=== PATIENT | male | born 1980 | race Caucasian/White ===

== ENCOUNTER 2019-03-20 02:52 | Outpatient (CLI) | payer OTHER, SELFPAY ==
[2019-03-23 13:48] LABS: Chlamydia Result Negative; GC Result Negative; Specimen Description URINE
== END 2019-03-20 03:12 ==
PROVIDERS: PCP Family Medicine; Visit Provider Family Medicine
DX: Z11.3 Encounter for screening for infections with a predominantly sexual mode of transmission; R30.0 Dysuria
CPT/HCPCS: 87491; 87591

== ENCOUNTER 2019-09-20 22:50 | Emergency (ER) | payer OTHER, SELFPAY ==
[2019-09-20 22:56] VITALS: BP 119/69; PULSE 85; RESP 16; TEMP 36.4; O2SAT 97
--- NOTE | 2019-09-20 23:10 | ED.GENADUL_ITS ---
Discharge Plan Disposition Patient Disposition: HOME Condition: Stable Discharge Details Chief Complaint: EarProblem Clinical Impression: Acute foreign body of right ear Primary Care Provider: Ashlye Colvin ED Provider: Prashant Shelton Home Meds and New Rx's Prescriptions: New Ciprodex 0.3-0.1 % drops,suspension 4 drp OT BID 7 Days Qty: 1 RF: 0 Continued methylphenidate HCl 10 mg tablet 10 mg PO QPM MDD 10 PRN (Reason: adhd) Qty: 15 RF: 0 ascorbic acid (vitamin C) 500 mg capsule PO RF: 0 methylphenidate HCl 27 mg tablet extended release 24hr 27 mg PO DAILY MDD 1 tab Qty: 30 RF: 0 Fish Oil 500 MG capsule,delayed release(DR/EC) 500 mg PO DAILY RF: 0 Discharge Instructions Additional Instructions: if you have increasing ear pain and drainge start the antibiotic drops and if it continues to worsen despite this return to the emergency department Medical Decision Making patient was using a q tip tonight and end broke off in his right ear, no d rainage or other symptoms. I removed cotton end of a q tip from the right ear and has no drainage redness and normal tm. Will d/c and given prescription for abx drops if pain or drainage develops Differential Diagnosis Differential Diagnosis: foreign body, otitis externa HPI General Mode of arrival: ambulatory . Date/Time Provider Initiated Documentation: 09/20/19 22:51 . Limitations to Documentation: no limitations . Information obtained by: patient . History of Present Illness 39 year old M presents to the emergency department with the chief complaint of right ear foreign body, described as moderate, Quality is described as aching, Patient started experiencing this hour(s) and it has been constant. No relieving factors improve symptom(s), No exacerbating factors reported . Related Data Home Medications Medication Instructions Recorded Confirmed Fish Oil 500 mg PO DAILY 12/16/13 03/18/19 methylphenidate HCl 10 mg tablet 10 mg PO QPM PRN #15 tab-cap MDD 10 02/25/19 09/20/19 ascorbic acid (vitamin C) 500 mg mg PO cap 03/18/19 03/18/19 capsule methylphenidate HCl 27 mg 27 mg PO DAILY #30 tab MDD 1 tab 08/21/19 09/20/19 tablet,extended release 24 hr ciprofloxacin-dexamethasone 4 drp OT BID 7 Days #1 packet 09/20/19 [Ciprodex] Previous Rx's Medication Instructions Recorded methylphenidate HCl 10 mg tablet 10 mg PO QPM PRN #15 tab-cap MDD 10 02/25/19 methylphenidate HCl 27 mg 27 mg PO DAILY #30 tab MDD 1 tab 08/21/19 tablet,extended release 24 hr ciprofloxacin-dexamethasone 4 drp OT BID 7 Days #1 packet 09/20/19 [Ciprodex] Allergies Allergy/AdvReac Type Severity Reaction Status Date / Time Penicillins Allergy Intermediate Skin Rash Unverified 03/18/19 15:02 General Stated Complaint: EarProblem FRANNIE: 4 Review of Systems All systems reviewed & are unremarkable except as noted in HPI and below Constitutional Constitutional: Denies chills, Denies fever(s) and Denies weakness Cardiovascular Cardiovascular: Denies chest pain and Denies dyspnea Respiratory Respiratory: Denies cough and Denies dyspnea Gastrointestinal Gastrointestinal: Denies abdominal pain, Denies nausea and Denies vomiting Musculoskeletal Musculoskeletal: Denies joint swelling Neurologic Neurologic: Denies weakness Psychiatric Psychiatric: Denies depression [facility] Medical History (Updated 08/19/18 @ 10:11 by Vicky Granda RN) ADHD (attention deficit hyperactivity disorder) Surgical History (Updated 02/20/19 @ 09:12 by Surya Luna) PROCEDURES R) metatarsal fx S/P ORIF Family History Mother Essential hypertension Father , IMMUNE PROBLEMS at age 34. HIV disease Brother No problems noted. Grandfather Diabetes Dyslexia Heart disease CABG Myocardial infarction Stroke Grandfather No problems noted. Grandmother Mental disorder BPAD Grandmother No problems noted. MATERNAL AUNTS AND UNCLES Dyslexia MATERNAL UNCLE X 1 Mental disorder DEPRESSION Son Asthma Son No problems noted. Other Depression Social History Smoking/Tobacco Use Status: Never Alcohol Intake: never Drug use: Never Do you feel safe at home: Yes Do you feel safe in your relationship?: Yes Exam Const General: no acute distress Orientation: alert HENMT Head: normal to inspection Ears: external ears normal General nose exam: external nose normal Mouth: moist mucous membranes Eyes General: appearance normal, both eyes and all related structures Neck Neck: normal visual inspection Resp Effort & Inspection: normal respiratory effort and able to speak in complete sentences Cardio Rate: regular rate Skin General skin exam: no rashes or lesions noted Neuro General: alert and oriented x3 Extrem General: normal to inspection Psych Mental Status: mental status grossly normal Course Vital Signs Vital signs: Vital Signs Temperature 36.4 C L 09/20/19 22:56 Pulse 85 09/20/19 22:56 Respiratory Rate 16 09/20/19 22:56 Blood Pressure 119/69 09/20/19 22:56 Pulse Oximetry 97 09/20/19 22:56 Temperature 36.4 C L 09/20/19 22:56 Temperature Source Skin 09/20/19 22:56 Pulse 85 09/20/19 22:56 Respiratory Rate 16 09/20/19 22:56 Respiratory Effort 09/20/19 22:57 Blood Pressure 119/69 09/20/19 22:56 Blood Pressure Position Sitting 09/20/19 22:56 Pulse Oximetry 97 09/20/19 22:56 Oxygen Delivery Method Room Air 09/20/19 22:56 Oxygen Flow Rate 0 09/20/19 22:56 Procedures FB Removal Ear Location: ear canal (R) Foreign Body Suspected: other (q tip end) TM intact pre-procedure: yes Foreign Body Removed: yes Foreign Body Removal Technique: instrumentation Tympanic Membrane Intact: Yes Patient Tolerated Procedure: well Complications: none
== END 2019-09-20 23:15 | disposition home or self-care (01) ==
PROVIDERS: Emergency Provider Emergency Medicine; PCP Family Medicine
DX: T16.1XXA Foreign body in right ear, initial encounter (principal)
CPT/HCPCS: 69200

== ENCOUNTER 2020-02-18 08:22 | Emergency (ER) | payer OTHER, SELFPAY ==
[2020-02-18 08:26] VITALS: BP 126/76; PULSE 78; RESP 15; TEMP 36.7; O2SAT 99
--- NOTE | 2020-02-18 08:36 | ED.GENADUL_ITS ---
Discharge Plan Disposition Patient Disposition: HOME Condition: Improving Discharge Details Chief Complaint: EarProblem Clinical Impression: Foreign body in left ear, initial encounter Primary Care Provider: Ashley Colvin ED Provider: Diana Rick Home Meds and New Rx's Prescriptions: Continued ascorbic acid (vitamin C) 500 mg capsule PO RF: 0 methylphenidate HCl 10 mg tablet 10 mg PO QPM MDD 10 PRN (Reason: adhd) Qty: 15 RF: 0 methylphenidate HCl 27 mg tablet extended release 24hr 27 mg PO DAILY MDD 1 tab Qty: 30 RF: 0 Fish Oil 500 MG capsule,delayed release(DR/EC) 500 mg PO DAILY RF: 0 Discharge Instructions Instructions: Ear Foreign Body (ED) Additional Instructions: Follow up with primary care provider in 3-5 days. Return to ED sooner if any worsening or concerns. Increase oral fluids. Please take Tylenol or Ibuprofen with food every 4-6 hours as needed for pain and swelling. Generally, do not stick anything into your ear smaller than the pinky finger. If you do need to clean out your ears use high-quality Q-tips. Please follow-up with your PCP for any ringing in your ears, increased pain, or drainage. Or you may return to the ED at any time as always thank you for allowing us to be part of your care today. Referrals: Ashley Colvin MD [Primary Care Provider] - Discharge Data Discharge Date/Time-TO BE ENTERED AT DEPARTURE: 02/18/20 08:38 Medical Decision Making 39-year-old male presents with foreign body to left ear. Severity is rated as mild. patient states approximately 1 hour ago he was cleaning his ear with a Q- tip and the cotton tip got stuck in his left ear canal. He denies any fever, chills no pain. He does have a history of ADHD, dyslexia. Patient presented with left ear canal foreign body which was removed without difficulty. Patient discharged to PCP. This text was generated using [employer] system, please disregard any oddities of phrase or misspellings.. HPI General Mode of arrival: ambulatory . Date/Time Provider Initiated Documentation: 02/18/20 08:25 . Limitations to Documentation: no limitations . Information obtained by: patient . HPI Narrative: 39-year-old male presents with foreign body to left ear. Severity is rated as mild. patient states approximately 1 hour ago he was cleaning his ear with a Q-tip and the cotton tip got stuck in his left ear canal. He denies any fever, chills no pain. He does have a history of ADHD, dyslexia. Related Data Home Medications Medication Instructions Recorded Confirmed Fish Oil 500 mg PO DAILY 12/16/13 02/18/20 ascorbic acid (vitamin C) 500 mg mg PO cap 03/18/19 03/18/19 capsule methylphenidate HCl 10 mg tablet 10 mg PO QPM PRN #15 tab-cap MDD 10 01/18/20 02/18/20 methylphenidate HCl 27 mg 27 mg PO DAILY #30 tab MDD 1 tab 01/18/20 02/18/20 tablet,extended release 24 hr Previous Rx's Medication Instructions Recorded methylphenidate HCl 10 mg tablet 10 mg PO QPM PRN #15 tab-cap MDD 10 01/18/20 methylphenidate HCl 27 mg 27 mg PO DAILY #30 tab MDD 1 tab 01/18/20 tablet,extended release 24 hr Allergies Allergy/AdvReac Type Severity Reaction Status Date / Time Penicillins Allergy Intermediate Skin Rash Unverified 02/18/20 08:28 General Stated Complaint: EarProblem FRANNIE: 5 Review of Systems Narrative: Constitutional: Negative for weight loss, alert and oriented, well groomed, normal body habitus, appears comfortable. HEENT: Denies trauma, headaches, blurry vision, nasal discharge, sore throat, t rouble swallowing. Reports left ear foreign body sensation. Chest: Denies chest pain, palpitations, irregular rhythm, hypertension. Respiratory: Denies Shortness of breath, cough, hemoptysis. GI: Denies abdominal pain, nausea, vomiting, diarrhea, constipation. All systems reviewed & are unremarkable except as noted in HPI and below PFSH Medical History ADHD (attention deficit hyperactivity disorder) Surgical History PROCEDURES R) metatarsal fx S/P ORIF Family History Mother Essential hypertension Father , IMMUNE PROBLEMS at age 34. HIV disease Brother No problems noted. Grandfather Diabetes Dyslexia Heart disease CABG Myocardial infarction Stroke Grandfather No problems noted. Grandmother Mental disorder BPAD Grandmother No problems noted. MATERNAL AUNTS AND UNCLES Dyslexia MATERNAL UNCLE X 1 Mental disorder DEPRESSION Son Asthma Son No problems noted. Other Depression Social History Smoking/Tobacco Use Status: Never Alcohol Intake: never Drug use: Never Do you feel safe at home: Yes Do you feel safe in your relationship?: Yes Exam Const General: cooperative, healthy appearing, comfortable, no acute distress, well developed and well groomed Nutritional Appearance: average body habitus Orientation: alert, awake and oriented x3 HENMT Head: normal to inspection Ears: external ears normal, TM normal on the right, no periauricular adenopathy, no external ear abnormalities, hearing grossly not impaired and unable to visualize TM on the left (White cotton foreign body noted in ear canal) General nose exam: external nose normal Face and sinus: normal facial exam Mouth: oral mucosae normal Course Vital Signs Vital signs: Vital Signs Temperature 36.7 C 02/18/20 08:26 Pulse 78 02/18/20 08:26 Respiratory Rate 15 02/18/20 08:26 Blood Pressure 126/76 02/18/20 08:26 Pulse Oximetry 99 02/18/20 08:26 Temperature 36.7 C 02/18/20 08:26 Temperature Source Temporal Artery Scan 02/18/20 08:26 Pulse 78 02/18/20 08:26 Respiratory Rate 15 02/18/20 08:26 Respiratory Effort Non-Labored 02/18/20 08:27 Blood Pressure 126/76 02/18/20 08:26 Blood Pressure Position Sitting 02/18/20 08:26 Pulse Oximetry 99 02/18/20 08:26 Oxygen Delivery Method Room Air 02/18/20 08:26 Oxygen Flow Rate 0 02/18/20 08:26 Procedures FB Removal Ear Location: ear canal (L) (White cotton Q-tip end) TM intact pre-procedure: unable to visualize Foreign Body Removed: yes Foreign Body Removal Technique: forceps (Alligator forceps) Tympanic Membrane Intact: Yes Patient Tolerated Procedure: well and no complications Additional Comments: Slight erythema noted to the external ear canal, no swelling.
== END 2020-02-18 08:38 | disposition home or self-care (01) ==
PROVIDERS: Emergency Provider Registered Nurse Emergency; PCP Family Medicine
DX: T16.2XXA Foreign body in left ear, initial encounter (principal)
CPT/HCPCS: 69200

== ENCOUNTER 2020-03-09 22:29 | Outpatient (REF) | payer OTHER, SELFPAY ==
[2020-03-11 14:52] LABS: Chlamydia Result Negative (Negative); GC Result Negative (Negative)
== END 2020-03-09 22:49 ==
LOC: LBN 22:29
PROVIDERS: PCP Family Medicine; Visit Provider Family Medicine
DX: Z11.3 Encounter for screening for infections with a predominantly sexual mode of transmission (principal)
CPT/HCPCS: 87491; 87591

== ENCOUNTER 2021-03-15 13:44 | Outpatient (REF) | payer OTHER, SELFPAY ==
[2021-03-16 15:50] LABS: Chlamydia Result Negative (Negative); GC Result Negative (Negative)
== END 2021-03-15 13:45 | disposition home or self-care (01) ==
LOC: LBN 13:44
PROVIDERS: PCP Family Medicine; Visit Provider Family Medicine
DX: Z11.3 Encounter for screening for infections with a predominantly sexual mode of transmission (principal)
CPT/HCPCS: 87491; 87591

== ENCOUNTER 2021-07-17 18:59 | Outpatient (REF) | payer OTHER, SELFPAY ==
[2021-07-20 08:17] LABS: Chlamydia Result Negative (Negative); GC Result Negative (Negative)
== END 2021-07-17 19:00 | disposition home or self-care (01) ==
LOC: LBN 18:59
PROVIDERS: PCP Family Medicine; Visit Provider Family Medicine
DX: Z11.3 Encounter for screening for infections with a predominantly sexual mode of transmission (principal)
CPT/HCPCS: 87491; 87591

== ENCOUNTER 2022-01-27 11:15 | Outpatient (REF) | payer BC, SELFPAY ==
[2022-01-29 14:08] LABS: Chlamydia Result Positive (Negative); GC Result Negative (Negative)
== END 2022-01-27 11:16 | disposition home or self-care (01) ==
LOC: LBN 11:15
PROVIDERS: PCP Nurse Practitioner Family; Visit Provider Nurse Practitioner Family
DX: N39.0 Urinary tract infection, site not specified (principal); Z20.2 Contact with and (suspected) exposure to infections with a predominantly sexual mode of transmission
CPT/HCPCS: 87491; 87591

== ENCOUNTER 2022-02-17 16:52 | Outpatient (REF) | payer BC, SELFPAY ==
[2022-02-19 14:56] LABS: Chlamydia Result Negative (Negative); GC Result Negative (Negative)
== END 2022-02-17 16:53 | disposition home or self-care (01) ==
LOC: LBN 16:52
PROVIDERS: PCP Nurse Practitioner Family; Visit Provider Physician Assistant
DX: A63.8 Other specified predominantly sexually transmitted diseases (principal)
CPT/HCPCS: 87491; 87591

== ENCOUNTER 2022-05-10 03:10 | Outpatient (CLI) | payer BC, SELFPAY ==
[2022-05-10 17:22] LABS: Hemoglobin A1C 5.5 % (<5.7)
[2022-05-10 17:26] LABS: Calculated LDL 81 mg/dL (<100); Cholesterol 167 mg/dL (<200); HDL Cholesterol 56 mg/dL (40-60); Triglyceride 154 mg/dL (<150)
[2022-05-14 10:14] LABS: Lyme Ab w Rflx to Lyme Confirm Negative (Negative)
[2022-05-14 18:50] LABS: Anaplasma phagocytophilum Negative (Negative); B. miyamotoi PCR Negative (Negative); Babesia divergens/MO-1 Negative (Negative); Babesia duncani Negative (Negative); Babesia microti Negative (Negative); Ehrlichia chaffeensis Negative (Negative); Ehrlichia ewingii/canis Negative (Negative); Ehrlichia muris eauclairensis Negative (Negative)
== END 2022-05-10 03:11 | disposition home or self-care (01) ==
LOC: LBO 03:10
PROVIDERS: PCP Nurse Practitioner Family; Visit Provider Nurse Practitioner Family
DX: R52 Pain, unspecified (principal); Z13.1 Encounter for screening for diabetes mellitus; Z13.220 Encounter for screening for lipoid disorders
CPT/HCPCS: 36415; 80061; 87798; 83036; 86618

== ENCOUNTER → 2024-01-24 01:05 | Outpatient (CLI) | payer BC, SELFPAY ==
--- NOTE | 2024-01-24 08:15 | DI.RAD_ITS ---
Exam(s) XR ABDOMEN FLAT UPRIGHT EXAM: 2D digital imaging was performed. CLINICAL HISTORY: Continued pain from stomach injury,llq abd pain, r10.32. COMPARISON: No exams were available for comparison TECHNIQUE: Supine and upright views of the abdomen were performed. FINDINGS: BOWEL GAS PATTERN: Nondistended.No free air. Increased stool in the right side of the colon, normal distally. CALCIFICATIONS: No urinary tract calcifications. OSSEOUS STRUCTURES: Normal for age. Visualized portions of chest: Unremarkable. IMPRESSION: 1. Nonobstructive bowel gas pattern. 2. No radiopaque calculi. 3. No free air. DATA REPOSITORY: RADIATION DOSE DELIVERED:
== END ==
PROVIDERS: PCP Nurse Practitioner Family; Visit Provider Nurse Practitioner Family
DX: R10.32 Left lower quadrant pain (principal)
CPT/HCPCS: 74019

== ENCOUNTER 2024-07-07 10:03 | Outpatient (REF) | payer BC, SELFPAY ==
[2024-07-07 13:07] LABS: ESR 9 mm/hr (0-15)
[2024-07-07 13:08] LABS: Abs Immature Grans 0.02 10^3/uL (0.0-0.06); Absolute Basophil Count 0.04 10^3/uL (0.0-0.2); Absolute Eosinophil Count 0.14 10^3/uL (0.0-0.7); Absolute Monocyte Count 0.64 10^3/uL (0.1-0.8); Absolute Neutrophil Count 6.92 10^3/uL (1.2-6.7); Basophils % 0.4 %; Eosinophils % 1.5 %; HCT 40.9 % (40.0-50.0); HGB 14.1 g/dL (13.5-17.5); Immature Grans % 0.2 %; Lymphocytes % 15.3 %; MCH 30.9 pg (27.0-33.0); MCHC 34.5 % (32.0-36.0); MCV 90 fL (80-95); MPV 10.3 fL (8.0-11.0); Neutrophils % 75.6 %; Platelet Count 271 10^3/uL (130-400); RBC 4.57 10^6/uL (4.36-5.78); RDW 13.2 % (11.8-14.1); RDW-SD 43.6 fL; WBC 9.16 10^3/uL (4.4-10.8)
[2024-07-07 13:29] LABS: ALT 38 U/L (16-63); AST 23 U/L (15-37); Albumin 4.1 g/dL (3.4-5.0); Alkaline Phosphatase 53 U/L (46-116); Anion Gap 9.9 mmol/L (3-11); BUN 20 mg/dL (7-18); Bilirubin, Total 0.33 mg/dL (0.2-1.0); CO2 25.1 mmol/L (21.0-32.0); Calcium 9.3 mg/dL (8.5-10.1); Chloride 107 mmol/L (98-107); Estimated GFR 96.97 (mL/min/1.73m2); Glucose 108 mg/dL (74-106); Potassium 4.3 mmol/L (3.5-5.1); Sodium 142 mmol/L (136-145); Total Protein 7.5 g/dL (6.4-8.2)
[2024-07-07 13:32] LABS: C-Reactive Protein < 0.50 mg/dL (<or=0.5)
[2024-07-07 13:48] LABS: Bilirubin Negative (Negative); Blood Negative (Negative); Clarity Clear (Clear); Glucose Negative (Negative); Ketones Negative (Negative); Leukocyte Esterase Negative (Negative); Nitrite Negative (Negative); Urobilinogen 0.2 mg/dL (Up to 0.2)
[2024-07-08 13:36] LABS: ANA Interpretation Negative (Negative)
== END 2024-07-07 10:04 ==
LOC: LBN 10:03
PROVIDERS: PCP Nurse Practitioner Family; Visit Provider Nurse Practitioner Family
DX: R39.9 Unspecified symptoms and signs involving the genitourinary system; M79.652 Pain in left thigh; Z91.89 Other specified personal risk factors, not elsewhere classified
CPT/HCPCS: 80053; 85652; 81003; 85025; 86038; 86140